=== PATIENT | male | born 1990 | race Caucasian/White ===

== ENCOUNTER 2018-02-02 09:47 | Emergency (ER) | payer OTHER ==
[2018-02-02] MEDS: HYDROCODONE/APAP (5/325) TAB PO (10:57)
== END 2018-02-02 11:18 | disposition home or self-care (01) ==
LOC: FTE 09:47
DX: S99.921A Unspecified injury of right foot, initial encounter (principal); W10.8XXA Fall (on) (from) other stairs and steps, initial encounter; Y92.9 Unspecified place or not applicable; Z87.891 Personal history of nicotine dependence
CPT/HCPCS: 72100; 73630; 99284-25

== ENCOUNTER 2018-04-29 08:27 | Emergency (ER) | payer OTHER ==
[2018-04-29] MEDS: ACETAMINOPHEN 500 MG TAB PO (09:20)
[2018-04-29] MEDS: DEXAMETHASONE 10 MG/ML 1 ML INJ IM ×2 (09:47→09:48)
== END 2018-04-29 09:54 | disposition home or self-care (01) ==
LOC: FTE 08:27
DX: J06.9 Acute upper respiratory infection, unspecified (principal); F17.210 Nicotine dependence, cigarettes, uncomplicated
CPT/HCPCS: 96372; 99284-25

== ENCOUNTER 2018-05-08 02:09 | Emergency (ER) | payer OTHER | END 2018-05-08 04:10 | disposition home or self-care (01) | LOC: FTE 02:09 | DX: R05 Cough (principal) | CPT/HCPCS: 71046; 99283-25 ==

== ENCOUNTER 2018-11-01 12:29 | Emergency (ER) | payer OTHER ==
[2018-11-01 15:37] LABS: ADD MAN DIFF? NO
[2018-11-01 15:43] LABS: WHITE BLOOD COUNT 6.5 10^3/ul (4.8-10.8)
[2018-11-01 15:43] LABS: BASOPHILS % 0.5 % (0.0-2.0); EOSINOPHILS # 0.1 10^3/ul (0.0-0.5); EOSINOPHILS % 1.8 % (0.0-7.0); HEMATOCRIT 47.8 % (42.0-52.0); HEMOGLOBIN 15.9 g/dl (14.0-18.0); LYMPHOCYTES # 2.3 10^3/ul (0.8-2.9); LYMPHOCYTES % 35.7 % (15.0-51.0); MEAN CORPUSCULAR HEMOGLOBIN 28.9 pg (29.0-33.0); MEAN CORPUSCULAR HGB CONC 33.3 g/dl (32.0-37.0); MEAN CORPUSCULAR VOLUME 86.9 fl (82.0-101.0); MEAN PLATELET VOLUME 8.5 fl (7.4-10.4); MONOCYTE # 0.6 10^3/ul (0.3-0.9); MONOCYTES % 8.9 % (0.0-11.0); NEUTROPHIL # 3.5 10^3/ul (1.6-7.5); NEUTROPHILS % 52.8 % (39.0-77.0); PLATELET COUNT 262 10^3/UL (140-415); RED CELL DISTRIBUTION WIDTH 12.1 % (11.5-14.5)
[2018-11-01 16:01] LABS: ALANINE AMINOTRANSFERASE 25 IU/L (13-69); ALBUMIN 5.1 g/dl (3.3-4.9); ALBUMIN/GLOBULIN RATIO 1.54; ALKALINE PHOSPHATASE 57 IU/L (42-121); ANION GAP 12 (5-13); ASPARTATE AMINO TRANSFERASE 24 IU/L (15-46); BILIRUBIN,INDIRECT 0.4 mg/dl (0-1.1); BILIRUBIN,TOTAL 0.4 mg/dl (0.2-1.3); BLOOD UREA NITROGEN 14 mg/dl (7-20); CALCIUM 10.5 mg/dl (8.4-10.2); CARBON DIOXIDE 30 mmol/L (21-31); CHLORIDE 102 mmol/L (97-110); CREATININE 0.86 mg/dl (0.61-1.24); Estimated GFR > 60 mL/min (>60); GLUCOSE 96 mg/dl (70-220); LIPASE 88 U/L (23-300); POTASSIUM 3.7 mmol/L (3.5-5.1); SODIUM 144 mmol/L (135-144); TOTAL PROTEIN 8.4 g/dl (6.1-8.1)
[2018-11-01 16:15] LABS: ADD UMIC NO; UR ASCORBIC ACID NEGATIVE (NEGATIVE); UR BILIRUBIN (Dip) NEGATIVE (NEGATIVE); UR BLOOD (Dip) NEGATIVE (NEGATIVE); UR CLARITY CLEAR (CLEAR); UR COLOR COLORLESS (YELLOW); UR GLUCOSE (Dip) NEGATIVE (NEGATIVE); UR KETONES (Dip) NEGATIVE (NEGATIVE); UR LEUKOCYTE ESTERASE (Dip) NEGATIVE Leu/ul (NEGATIVE); UR NITRITE (Dip) NEGATIVE (NEGATIVE); UR SPECIFIC GRAVITY (Dip) 1.003 (1.003-1.030); UR TOTAL PROTEIN (Dip) NEGATIVE (NEGATIVE); UR UROBILINOGEN (Dip) NEGATIVE (NEGATIVE)
[2018-11-01] MEDS: IOHEXOL 300MG/ML 150 ML BTL (16:49)
[2018-11-01] MEDS: SOD CHLORIDE 0.9% 100 ML (16:49)
== END 2018-11-01 17:38 | disposition home or self-care (01) ==
LOC: FTE 12:29
DX: K29.00 Acute gastritis without bleeding (principal); K62.5 Hemorrhage of anus and rectum
CPT/HCPCS: 36415; 74177; 80053; 81003; 83690; 85025; 99284-25

== ENCOUNTER 2018-12-26 14:54 | Emergency (ER) | payer OTHER ==
[2018-12-26] MEDS: predniSONE 20 MG TAB PO ×2 (15:55→15:57)
== END 2018-12-26 16:05 | disposition home or self-care (01) ==
LOC: FTE 14:54
DX: J04.0 Acute laryngitis (principal)
CPT/HCPCS: 99283; J7512